=== PATIENT | male | born 1970 | race African-American/Black ===

== ENCOUNTER 2018-11-08 07:26 | Observation (INO) | payer OTHER ==
[~2018-11-08] VITALS: Ht 175.3 cm; Wt 114.4 kg
[~2018-11-08 07:26] MED LIST: FAMO20TA5 PO
--- NOTE | 2018-11-08 07:42 | PHYS DOC ---
Past Medical History Past Medical History: GERD, Stroke Past Surgical History: No Surgical History Alcohol Use: Occasionally Drug Use: Marijuana Adult General Chief Complaint Chief Complaint: HYPERTENSION HPI HPI Patient is a 48 year old who presents to ER today for evaluation of headache, high blood pressure, left arm pain associated with some tingling sensation on his left hand off and on since Sunday, which is 5 days ago. He had no history hypertension, no history diabetic. Patient had no history of coronary disease. Patient has history of prostate problem, he is on Flomax for. Patient is a smoker, social drinker. Review of Systems Review of Systems Constitutional: Denies fever or chills [] Eyes: Denies change in visual acuity, redness, or eye pain [] HENT: Denies nasal congestion or sore throat [] Respiratory: Denies cough or shortness of breath [] Cardiovascular: Positive for chest pain, left arm pain, GI: Denies abdominal pain, nausea, vomiting, bloody stools or diarrhea [] : Denies dysuria or hematuria [] Musculoskeletal: Denies back pain or joint pain [] Integument: Denies rash or skin lesions [] Neurologic: Positive for headache and dizziness, NO focal weakness or sensory changes [] Endocrine: Denies polyuria or polydipsia [] All other systems were reviewed and found to be within normal limits, except as documented in this note. Current Medications Current Medications Current Medications Medications (Trade) Dose Ordered Sig/[facility] Start Time Stop Time Status Last Admin Dose Admin Acetaminophen (Tylenol) 1,000 mg 1X ONCE 11/08/18 08:00 11/08/18 08:04 DC 11/08/18 08:14 1,000 MG Famotidine (Pepcid Vial) 20 mg 1X ONCE 11/08/18 08:45 11/08/18 08:46 DC 11/08/18 08:51 20 MG Multi-Ingredient Mouthwash/Gargle (Gi Cocktail) 20 ml 1X ONCE 11/08/18 08:45 11/08/18 08:46 DC 11/08/18 08:51 20 ML Nitroglycerin (Nitrostat) 0.4 mg PRN Q5MIN PRN 11/08/18 10:00 11/08/18 10:12 0.4 MG Allergies Allergies Allergies Coded Allergies Type Severity Reaction Last Updated Verified No Known Drug Allergies 11/08/18 No Physical Exam Physical Exam Constitutional: Well developed, well nourished, no acute distress, non-toxic appearance. [] HENT: Normocephalic, atraumatic, bilateral external ears normal, oropharynx moist, no oral exudates, nose normal. [] Eyes: PERRLA, EOMI, conjunctiva normal, no discharge. [] Neck: Normal range of motion, no tenderness, supple, no stridor. [] Cardiovascular:Heart rate regular rhythm, no murmur [] Lungs & Thorax: Bilateral breath sounds clear to auscultation [] Abdomen: Bowel sounds normal, soft, no tenderness, no masses, no pulsatile masses. [] Skin: Warm, dry, no erythema, no rash. [] Back: No tenderness, no CVA tenderness. [] Extremities: No tenderness, no cyanosis, no clubbing, ROM intact, no edema. [] Neurologic: Alert and oriented X 3, normal motor function, normal sensory function, no focal deficits noted. [] Psychologic: Affect normal, judgement normal, mood normal. [] Current Patient Data Vital Signs Vital Signs Date Time Temp Pulse Resp B/P (MAP) Pulse Ox O2 Delivery O2 Flow Rate FiO2 11/08/18 10:12 84 140/85 11/08/18 07:29 98.2 18 99 Room Air 98.2 Lab Values Laboratory Tests Test 11/08/18 07:40 White Blood Count 8.4 x10^3/uL (4.0-11.0) Red Blood Count 4.85 x10^6/uL (4.30-5.70) Hemoglobin 15.1 g/dL (13.0-17.5) Hematocrit 42.8 % (39.0-53.0) Mean Corpuscular Volume 88 fL (79-100) Mean Corpuscular Hemoglobin 31 pg (25-35) Mean Corpuscular Hemoglobin Concent 35 g/dL (31-37) Red Cell Distribution Width 14.2 % (11.5-14.5) Platelet Count 215 x10^3/uL (140-400) Neutrophils (%) (Auto) 40 % (31-73) Lymphocytes (%) (Auto) 51 % (24-48) H Monocytes (%) (Auto) 7 % (0-9) Eosinophils (%) (Auto) 2 % (0-3) Basophils (%) (Auto) 1 % (0-3) Neutrophils # (Auto) 3.3 x10^3uL (1.8-7.7) Lymphocytes # (Auto) 4.3 x10^3/uL (1.0-4.8) Monocytes # (Auto) 0.6 x10^3/uL (0.0-1.1) Eosinophils # (Auto) 0.2 x10^3/uL (0.0-0.7) Basophils # (Auto) 0.1 x10^3/uL (0.0-0.2) Prothrombin Time 12.3 SEC (11.7-14.0) Prothrombin Time INR 0.9 (0.8-1.1) Sodium Level 142 mmol/L (136-145) Potassium Level 3.6 mmol/L (3.5-5.1) Chloride Level 106 mmol/L (98-107) Carbon Dioxide Level 28 mmol/L (21-32) Anion Gap 8 (6-14) Blood Urea Nitrogen 12 mg/dL (8-26) Creatinine 1.2 mg/dL (0.7-1.3) Estimated GFR (Cockcroft-Gault) 77.9 BUN/Creatinine Ratio 10 (6-20) Glucose Level 113 mg/dL (70-99) H Calcium Level 9.1 mg/dL (8.5-10.1) Magnesium Level 2.1 mg/dL (1.8-2.4) Total Bilirubin 0.5 mg/dL (0.2-1.0) Aspartate Amino Transferase (AST) 16 U/L (15-37) Alanine Aminotransferase (ALT) 17 U/L (16-63) Alkaline Phosphatase 96 U/L (46-116) Creatine Kinase 116 U/L (39-308) Creatine Kinase MB (Mass) < 0.5 ng/mL (0.0-3.6) Creatine Kinase MB Relative Index % (0-4) Troponin I Quantitative < 0.017 ng/mL (0.000-0.055) KQ-Dcc-T-Type Natriuretic Peptide 9 pg/mL (0-124) Total Protein 7.6 g/dL (6.4-8.2) Albumin 3.4 g/dL (3.4-5.0) Albumin/Globulin Ratio 0.8 (1.0-1.7) L Lipase 266 U/L (73-393) Laboratory Tests 11/08/18 07:40 Laboratory Tests 11/08/18 07:40 EKG EKG EKG was read by this physician at 7:35 am, rate of 89 BPM, SINUS RHYTHM, INCOMPLETE RBBB. Interpretation Time: [address] [id number] IMAGING REPORT Signed PATIENT: OLGA CISNEROS ACCOUNT: [id number] : 1970 LOCATION: ER AGE: 48 SEX: M EXAM STATUS: PRE ER ORD. PHYSICIAN: TAMIKO CRUZ DO REASON: chest pain PROCEDURE: PORTABLE CHEST 1V PORTABLE CHEST 1V History: HYPERTENSION, CHEST PAIN, LEFT SIDED NUMBNESS Comparison: July 31, 2016 Findings: AP view of the chest is submitted. There is no new infiltrate, pleural fluid, pneumothorax. Heart size is stable, within normal limits. Impression: 1. No acute radiographic abnormality is identified. Electronically signed by: Tiffany Pinto MD (11/08/2018 7:57 AM) [id number] DICTATED and SIGNED BY: TIFFANY PINTO MD DATE: 11/08/[address] [address] IMAGING REPORT Signed PATIENT: OLGA CSINEROS ACCOUNT: [id number] : 1970 LOCATION: ER AGE: 48 SEX: M EXAM STATUS: REG ER ORD. PHYSICIAN: TAMIKO CRUZ DO REASON: headache, dizziness, HYPERTENSION PROCEDURE: CT HEAD WO CONTRAST CT HEAD WO CONTRAST History: Headache, left arm weakness for one week, hypertension Comparison: July 28, 2014 Technique: Noncontrast CT imaging was performed of the head. Exposure: One or more of the following individualized dose reduction techniques were utilized for this examination: 1. Automated exposure control 2. Adjustment of the mA and/or kV according to patient size 3. Use of iterative reconstruction technique. Findings: No acute extra-axial or parenchymal hemorrhage is identified. There is no significant intra-axial mass effect, midline shift, or extra-axial fluid collection. The logan-white differentiation of the major vascular territories is preserved. The ventricles, sulci, and cisterns are within normal limits in size and configuration. The mastoid air cells and the visualized paranasal sinuses are aerated. No acute calvarial abnormality is identified. Impression: 1. No acute intracranial abnormality is identified. Electronically signed by: Tiffany Pinto MD (11/08/2018 8:38 AM) [id number] DICTATED and SIGNED BY: TIFFANY PINTO MD DATE: 11/08/18 0836 Radiology/Procedures Radiology/Procedures [] Course & Med Decision Making Course & Med Decision Making Pertinent Labs and Imaging studies reviewed. (See chart for details) Dragon Disclaimer Dragon Disclaimer This electronic medical record was generated, in whole or in part, using a voice recognition dictation system. Departure Departure Impression: Primary Impression: Chest pain Additional Impression: HTN (hypertension) Disposition: 09 ADMITTED INPATIENT Admitting Physician: Trell Auguste Condition: STABLE Referrals: PACO FLORENCE DO (PCP) Problem Qualifiers TAMIKO CRUZ DO Nov 08, 2018 07:42
[2018-11-08 07:53] LABS: BASO # 0.1 x10^3/uL (0.0-0.2); BASO % 1 % (0-3); EOS # 0.2 x10^3/uL (0.0-0.7); EOS % 2 % (0-3); HEMATOCRIT 42.8 % (39.0-53.0); HEMOGLOBIN 15.1 g/dL (13.0-17.5); LYMPH # 4.3 x10^3/uL (1.0-4.8); LYMPH % 51 % (24-48); MEAN CORPUSCULAR HEMOGLOBIN 31 pg (25-35); MEAN CORPUSCULAR HGB CONC 35 g/dL (31-37); MEAN CORPUSCULAR VOLUME 88 fL (79-100); MONO # 0.6 x10^3/uL (0.0-1.1); MONO % 7 % (0-9); NEUT # 3.3 x10^3uL (1.8-7.7); NEUT % 40 % (31-73); PLATELET COUNT 215 x10^3/uL (140-400); RED BLOOD COUNT 4.85 x10^6/uL (4.30-5.70); RED CELL DISTRIBUTION WIDTH 14.2 % (11.5-14.5); WHITE BLOOD COUNT 8.4 x10^3/uL (4.0-11.0)
[2018-11-08 07:58] LABS: PROTHROMBIN TIME PATIENT 12.3 SEC (11.7-14.0)
[2018-11-08] MEDS ORDERED: ACETAMINOPHEN 500 MG TABLET PO ONE (08:00)
--- NOTE | 2018-11-08 08:01 | RAD ---
PORTABLE CHEST 1V History: HYPERTENSION, CHEST PAIN, LEFT SIDED NUMBNESS Comparison: July 31, 2016 Findings: AP view of the chest is submitted. There is no new infiltrate, pleural fluid, pneumothorax. Heart size is stable, within normal limits. Impression: 1. No acute radiographic abnormality is identified. Electronically signed by: Graham Gregory MD (11/08/2018 7:57 AM) [id number]
[2018-11-08 08:04] LABS: CALCIUM 9.1 mg/dL (8.5-10.1); CREATININE 1.2 mg/dL (0.7-1.3); GFR 77.9; POTASSIUM 3.6 mmol/L (3.5-5.1)
[2018-11-08 08:10] LABS: ALBUMIN 3.4 g/dL (3.4-5.0); ALBUMIN/GLOBULIN RATIO 0.8 (1.0-1.7); MAGNESIUM 2.1 mg/dL (1.8-2.4); TOTAL BILIRUBIN 0.5 mg/dL (0.2-1.0); TOTAL PROTEIN 7.6 g/dL (6.4-8.2)
[2018-11-08 08:35] LABS: CREATINE KINASE 116 U/L (39-308)
--- NOTE | 2018-11-08 08:42 | RAD ---
CT HEAD WO CONTRAST History: Headache, left arm weakness for one week, hypertension Comparison: July 28, 2014 Technique: Noncontrast CT imaging was performed of the head. Exposure: One or more of the following individualized dose reduction techniques were utilized for this examination: 1. Automated exposure control 2. Adjustment of the mA and/or kV according to patient size 3. Use of iterative reconstruction technique. Findings: No acute extra-axial or parenchymal hemorrhage is identified. There is no significant intra-axial mass effect, midline shift, or extra-axial fluid collection. The logan-white differentiation of the major vascular territories is preserved. The ventricles, sulci, and cisterns are within normal limits in size and configuration. The mastoid air cells and the visualized paranasal sinuses are aerated. No acute calvarial abnormality is identified. Impression: 1. No acute intracranial abnormality is identified. Electronically signed by: Graham Gregory MD (11/08/2018 8:38 AM) [id number]
[2018-11-08] MEDS ORDERED: FAMOTIDINE 20 MG/2 ML VIAL IVP ONE (08:45)
[2018-11-08] MEDS ORDERED: LIDO:MAALOX 1:1 20 ML SINGLE DOSE. SWSW ONE (08:45)
[2018-11-08] MEDS: NITROGLYCERIN SUBLINGUAL 0.4 MG BOTTLE OF 25. SL PRN ×3 (09:57→10:12)
[2018-11-08] MEDS ORDERED: MORPHINE SULFATE 4 MG/ML VIAL. ONE (10:16)
[2018-11-08] MEDS ORDERED: MORPHINE SULFATE 4 MG/ML VIAL. IV ONE (10:30)
[2018-11-08 11:24] VITALS: BP 128/78
[2018-11-08] MEDS ORDERED: LABETALOL 20 MG/4 ML DISP.SYRIN. IVP PRN (12:15)
--- NOTE | 2018-11-08 12:17 | PDOC2 ---
JAYDA HERRERA EXTRUDER OPERATOR MULTIPLE 11/08/18 1217: CARDIAC CONSULT DATE OF CONSULT Date of Consult DATE: 11/08/18 TIME: 11:33 REASON FOR CONSULT Reason for Consult: Chest pain REFERRING PHYSICIAN Referring Physician: Yosef SOURCE Source: Chart review, Patient HISTORY OF PRESENT ILLNESS HISTORY OF PRESENT ILLNESS This is a pleasant 48 yo male admitted for complains of chest pain and POLLARD. Reports that in the last 3 days he has been having left unilateral POLLARD throbbing and also hurts when touched. He has had blurred vision as well yesterday but no unilateral weakness or facial droop which he had several years back and was told of TIA and [place] palsy. No auditory disturbances, nausea, vomiting. No SOA but in the last 3 days he has been having left chest sharp pain as well as epigastric discomfort which appears to be superficial as this is reproducible easily with palpation and positional changes. No prior hx of CAD, arrhythmias, VTE. Positie for intermittent left arm numbness. Reports no recent falls or injury. He does not take any ASA or BP meds but in the last 3 days his spouse has been checking his BP and has been noting close to 250/116. His diet consist of mostly processed food. PAST MEDICAL HISTORY Pulmonary: No pertinent hx CENTRAL NERVOUS SYSTEM: TIA, Other (bells palsy) GI: GERD Musculoskeletal: Osteoarthritis Renal/: Benign prostatic enlarg. PAST SURGICAL HISTORY Past Surgical History: No pertinent history FAMILY HISTORY Family History noncontributory SOCIAL HISTORY Smoke: <1 pack per day ALCOHOL: occassional Drugs: Marijuana Lives: with Family CURRENT MEDICATIONS CURRENT MEDICATIONS Current Medications Medications (Trade) Dose Ordered Sig/Anitha Route PRN Reason Start Time Stop Time Status Last Admin Dose Admin Acetaminophen (Tylenol) 1,000 mg 1X ONCE PO 11/08/18 08:00 11/08/18 08:04 DC 11/08/18 08:14 Famotidine (Pepcid Vial) 20 mg 1X ONCE IVP 11/08/18 08:45 11/08/18 08:46 DC 11/08/18 08:51 Multi-Ingredient Mouthwash/Gargle (Gi Cocktail) 20 ml 1X ONCE SWSW 11/08/18 08:45 11/08/18 08:46 DC 11/08/18 08:51 Nitroglycerin (Nitrostat) 0.4 mg PRN Q5MIN PRN SL CHEST PAIN 11/08/18 10:00 11/08/18 10:12 Morphine Sulfate (Morphine Sulfate) 4 mg 1X ONCE IV 11/08/18 10:30 11/08/18 10:31 DC 11/08/18 10:23 ALLERGIES ALLERGIES: Coded Allergies: No Known Drug Allergies (Unverified , 11/08/18) ROS Review of System 14 point ROS evaluated with pertinent positives noted per HPI PHYSICAL EXAM General: Alert, Oriented X3, Cooperative, No acute distress HEENT: Atraumatic, Mucous membr. moist/pink Lungs: Clear to auscultation, Normal air movement Heart: Regular rate, Other (2/6 systolic murmur to LLS border) Abdomen: Soft, No tenderness Extremities: No cyanosis, No edema Skin: No breakdown, No significant lesion Neuro: Normal speech, Sensation intact Psych/Mental Status: Mental status NL, Mood NL MUSCULOSKELETAL: Osteoarthritic changes both hands VITALS VITALS Vital Signs Date Time Temp Pulse Resp B/P (MAP) Pulse Ox O2 Delivery O2 Flow Rate FiO2 11/08/18 11:24 97.9 71 128/78 (95) 99 Room Air 97.9 11/08/18 10:49 16 LABS Lab: Laboratory Tests Test 11/08/18 07:40 White Blood Count 8.4 x10^3/uL (4.0-11.0) Red Blood Count 4.85 x10^6/uL (4.30-5.70) Hemoglobin 15.1 g/dL (13.0-17.5) Hematocrit 42.8 % (39.0-53.0) Mean Corpuscular Volume 88 fL (79-100) Mean Corpuscular Hemoglobin 31 pg (25-35) Mean Corpuscular Hemoglobin Concent 35 g/dL (31-37) Red Cell Distribution Width 14.2 % (11.5-14.5) Platelet Count 215 x10^3/uL (140-400) Neutrophils (%) (Auto) 40 % (31-73) Lymphocytes (%) (Auto) 51 % (24-48) Monocytes (%) (Auto) 7 % (0-9) Eosinophils (%) (Auto) 2 % (0-3) Basophils (%) (Auto) 1 % (0-3) Neutrophils # (Auto) 3.3 x10^3uL (1.8-7.7) Lymphocytes # (Auto) 4.3 x10^3/uL (1.0-4.8) Monocytes # (Auto) 0.6 x10^3/uL (0.0-1.1) Eosinophils # (Auto) 0.2 x10^3/uL (0.0-0.7) Basophils # (Auto) 0.1 x10^3/uL (0.0-0.2) Prothrombin Time 12.3 SEC (11.7-14.0) Prothromb Time International Ratio 0.9 (0.8-1.1) Sodium Level 142 mmol/L (136-145) Potassium Level 3.6 mmol/L (3.5-5.1) Chloride Level 106 mmol/L (98-107) Carbon Dioxide Level 28 mmol/L (21-32) Anion Gap 8 (6-14) Blood Urea Nitrogen 12 mg/dL (8-26) Creatinine 1.2 mg/dL (0.7-1.3) Estimated GFR (Cockcroft-Gault) 77.9 BUN/Creatinine Ratio 10 (6-20) Glucose Level 113 mg/dL (70-99) Calcium Level 9.1 mg/dL (8.5-10.1) Magnesium Level 2.1 mg/dL (1.8-2.4) Total Bilirubin 0.5 mg/dL (0.2-1.0) Aspartate Amino Transf (AST/SGOT) 16 U/L (15-37) Alanine Aminotransferase (ALT/SGPT) 17 U/L (16-63) Alkaline Phosphatase 96 U/L (46-116) Creatine Kinase 116 U/L (39-308) Creatine Kinase MB (Mass) < 0.5 ng/mL (0.0-3.6) Creatine Kinase MB Relative Index % (0-4) Troponin I Quantitative < 0.017 ng/mL (0.000-0.055) RG-Fce-G-Type Natriuretic Peptide 9 pg/mL (0-124) Total Protein 7.6 g/dL (6.4-8.2) Albumin 3.4 g/dL (3.4-5.0) Albumin/Globulin Ratio 0.8 (1.0-1.7) Lipase 266 U/L (73-393) ASSESSMENT/PLAN ASSESSMENT/PLAN 1. Atypical Chest pain: doubt ACS. initial trop nml, EKG SR without acute changes by comparison. Suspect MSK and uncontrolled HTN 2. Malignant HTN: much improved noted 250/116 range in the last 3 days at home per spouse 3. Left unilateral POLLARD with hypertensive encephalopathy: blurred vision. CT head unremarkable 4. Likely muscle strain: epigastric region site. defer to PCP 5. HLP 6. Tobaccoism 7. Marijuana use 8. Hx of TIA and bells palsy Recommendations 1. Will obtain accurate med list. Discussed with RN 2. TTE. Trend troponin 3. BP is normalized after NTG and morphine given. Labetolol IV PRN. Await TTE and pending BP trend will place on appropriate antihypertensives. 4. Consider neurology consult. 5. Smoking cessation. lipids and drug screen. 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 MOHINI LUKE MD 11/08/18 1440: CARDIAC CONSULT ASSESSMENT/PLAN ASSESSMENT/PLAN Patient seen and examined. Agree with [facility] [employer]'s assessment and plan. Chest pain with atypical features and most probably musculoskeletal. Myocardial infarction has been ruled out. Blood pressure better controlled since admission. Check 2-D echo to assess LV systolic function and rule out wall motion abnormalities Ischemic workup could be considered as an outpatient Thank you for your consultation JAYDA HERRERA APRN Nov 08, 2018 12:17 MOHINI LUKE MD Nov 08, 2018 14:40
--- NOTE | 2018-11-08 12:47 | EKG ---
[facility] [address] [place] [address] Test Date: 2018-11-08 Test Time: 10:35:48 Pat Name: OLGA CISNEROS Department: Room: Gender: M Case Management Director: : 1970 Requested By: TAMIKO CRUZ Order Number: [id number] Reading MD: Measurements Intervals [place] Rate: 72 P: 44 TX: 154 QRS: -15 QRSD: 94 T: 48 QT: 370 QTc: 407 Interpretive Statements SINUS RHYTHM LEFT ATRIAL ABNORMALITY LEFTWARD AXIS ABNORMAL ECG RI6.01 No previous ECG available for comparison
[2018-11-08 12:55] LABS: CHOLESTEROL/HDL RATIO 5.3
--- NOTE | 2018-11-08 13:03 | PDOC2 ---
MARCI NICHOLS Marta CUT OFF SAWYER LOG 11/08/18 1303: UROLOGY CONSULT Date of Consult Date of Consult DATE: 11/08/18 TIME: 12:56 Reason for Consult Reason for Consult: Patient complains of prostate problems. Identification/Chief Complaint Chief Complaint Patient complains of prostate problems. Source Source: Caregiver, Chart review, Patient History of Present Illness Reason for Visit: Patient is a 48 year old male admitted for chest pain and hypertension evaluation. He had complained of frequency and nocturia to admitting physicians and so urology was consulted. Patient denies a history of prostate cancer, but may have BPH. He was just put on Flomax about one month ago and this has been working very well for him. He would like this medication ordered for him while he is in house. He denies a history of kidney stones or kidney problems. He has been urinating well/emptying his bladder well since he arrived here. However, he does admit some constipation and would like someone to look at his hemorrhoids. Past Medical History Pulmonary: No pertinent hx CENTRAL NERVOUS SYSTEM: TIA, Other (bells palsy) GI: GERD Musculoskeletal: Osteoarthritis Renal/: Benign prostatic enlarg. Past Surgical History Past Surgical History: No pertinent history Social History <1 pack per day ALCOHOL: occassional Drugs: Marijuana Lives: with Family Current Problem List Problems: (1) BPH (benign prostatic hyperplasia) Current Medications Current Medications Current Medications Acetaminophen (Tylenol) 1,000 mg 1X ONCE PO Last administered on 11/08/18at 08: 14; Start 11/08/18 at 08:00; Stop 11/08/18 at 08:04; Status DC Famotidine (Pepcid Vial) 20 mg 1X ONCE IVP Last administered on 11/08/18at 08:51 ; Start 11/08/18 at 08:45; Stop 11/08/18 at 08:46; Status DC Labetalol HCl (Normodyne Iv Push) 20 mg PRN Q2HR PRN IVP HYPERTENSION, SEE COMMENTS; Start 11/08/18 at 12:15 Morphine Sulfate (Morphine Sulfate) 4 mg 1X ONCE IV Last administered on at 10:23; Start 11/08/18 at 10:30; Stop 11/08/18 at 10:31; Status DC Morphine Sulfate (Morphine Sulfate) 4 mg STK-MED ONCE .ROUTE ; Start 11/08/18 at 10:16; Stop 11/08/18 at 10:17; Status DC Multi-Ingredient Mouthwash/Gargle (Gi Cocktail) 20 ml 1X ONCE SWSW Last administered on 11/08/18at 08:51; Start 11/08/18 at 08:45; Stop 11/08/18 at 08:46; Status DC Nitroglycerin (Nitrostat) 0.4 mg PRN Q5MIN PRN SL CHEST PAIN Last administered on 11/08/18at 10:12; Start 11/08/18 at 10:00 Allergies Allergies: Coded Allergies: No Known Drug Allergies (Unverified , 11/08/18) ROS Review Of Systems: CONSTITUTIONAL: No fever or chills EYES: No recent changes SKIN: No rash or itching CARDIOVASCULAR: No chest pain, syncope, palpitations, or edema RESPIRATORY: No SOB or cough GASTROINTESTINAL: No nausea, vomiting or abdominal pain NEUROLOGICAL: No headaches or weakness ENDOCRINE: No cold or heat intolerance GENITOURINARY: + Frequency, nocturia, BPH/LUTS symptoms. MUSCULOSKELETAL: No back pain or joint pain LYMPHATICS: No enlarged lymph nodes PSYCHIATRIC: No anxiety or depression Physical Exam Physical Exam: General: Pleasant, no acute distress, well groomed Eyes: conjunctiva anicteric, eyes full range of motion ENT: moist oral mucosa, normal dentition Neck: Trachea midline, no masses Respiratory: unlabored breathing, not using accessory muscles, Abdomen: nontender, nondistended, no hepatosplenomegaly, no masses. No flank pain bilaterally. Vitals VITALS Vital Signs Date Time Temp Pulse Resp B/P (MAP) Pulse Ox O2 Delivery O2 Flow Rate FiO2 11/08/18 11:24 97.9 71 128/78 (95) 99 Room Air 97.9 11/08/18 10:49 16 Labs Labs Laboratory Tests Test 11/08/18 07:40 11/08/18 12:00 White Blood Count 8.4 x10^3/uL (4.0-11.0) Red Blood Count 4.85 x10^6/uL (4.30-5.70) Hemoglobin 15.1 g/dL (13.0-17.5) Hematocrit 42.8 % (39.0-53.0) Mean Corpuscular Volume 88 fL (79-100) Mean Corpuscular Hemoglobin 31 pg (25-35) Mean Corpuscular Hemoglobin Concent 35 g/dL (31-37) Red Cell Distribution Width 14.2 % (11.5-14.5) Platelet Count 215 x10^3/uL (140-400) Neutrophils (%) (Auto) 40 % (31-73) Lymphocytes (%) (Auto) 51 % (24-48) Monocytes (%) (Auto) 7 % (0-9) Eosinophils (%) (Auto) 2 % (0-3) Basophils (%) (Auto) 1 % (0-3) Neutrophils # (Auto) 3.3 x10^3uL (1.8-7.7) Lymphocytes # (Auto) 4.3 x10^3/uL (1.0-4.8) Monocytes # (Auto) 0.6 x10^3/uL (0.0-1.1) Eosinophils # (Auto) 0.2 x10^3/uL (0.0-0.7) Basophils # (Auto) 0.1 x10^3/uL (0.0-0.2) Prothrombin Time 12.3 SEC (11.7-14.0) Prothromb Time International Ratio 0.9 (0.8-1.1) Sodium Level 142 mmol/L (136-145) Potassium Level 3.6 mmol/L (3.5-5.1) Chloride Level 106 mmol/L (98-107) Carbon Dioxide Level 28 mmol/L (21-32) Anion Gap 8 (6-14) Blood Urea Nitrogen 12 mg/dL (8-26) Creatinine 1.2 mg/dL (0.7-1.3) Estimated GFR (Cockcroft-Gault) 77.9 BUN/Creatinine Ratio 10 (6-20) Glucose Level 113 mg/dL (70-99) Calcium Level 9.1 mg/dL (8.5-10.1) Magnesium Level 2.1 mg/dL (1.8-2.4) Total Bilirubin 0.5 mg/dL (0.2-1.0) Aspartate Amino Transf (AST/SGOT) 16 U/L (15-37) Alanine Aminotransferase (ALT/SGPT) 17 U/L (16-63) Alkaline Phosphatase 96 U/L (46-116) Creatine Kinase 116 U/L (39-308) Creatine Kinase MB (Mass) < 0.5 ng/mL (0.0-3.6) Creatine Kinase MB Relative Index % (0-4) Troponin I Quantitative < 0.017 ng/mL (0.000-0.055) < 0.017 ng/mL (0.000-0.055) FX-Hen-U-Type Natriuretic Peptide 9 pg/mL (0-124) Total Protein 7.6 g/dL (6.4-8.2) Albumin 3.4 g/dL (3.4-5.0) Albumin/Globulin Ratio 0.8 (1.0-1.7) Triglycerides Level 115 mg/dL (0-150) Cholesterol Level 212 mg/dL (0-200) LDL Cholesterol, Calculated 149 mg/dL (0-100) VLDL Cholesterol, Calculated 23 mg/dL (0-40) Non-HDL Cholesterol Calculated 172 mg/dL (0-129) HDL Cholesterol 40 mg/dL (40-60) Cholesterol/HDL Ratio 5.3 Lipase 266 U/L (73-393) Laboratory Tests Test 11/08/18 07:40 11/08/18 12:00 White Blood Count 8.4 x10^3/uL (4.0-11.0) Red Blood Count 4.85 x10^6/uL (4.30-5.70) Hemoglobin 15.1 g/dL (13.0-17.5) Hematocrit 42.8 % (39.0-53.0) Mean Corpuscular Volume 88 fL (79-100) Mean Corpuscular Hemoglobin 31 pg (25-35) Mean Corpuscular Hemoglobin Concent 35 g/dL (31-37) Red Cell Distribution Width 14.2 % (11.5-14.5) Platelet Count 215 x10^3/uL (140-400) Neutrophils (%) (Auto) 40 % (31-73) Lymphocytes (%) (Auto) 51 % (24-48) Monocytes (%) (Auto) 7 % (0-9) Eosinophils (%) (Auto) 2 % (0-3) Basophils (%) (Auto) 1 % (0-3) Neutrophils # (Auto) 3.3 x10^3uL (1.8-7.7) Lymphocytes # (Auto) 4.3 x10^3/uL (1.0-4.8) Monocytes # (Auto) 0.6 x10^3/uL (0.0-1.1) Eosinophils # (Auto) 0.2 x10^3/uL (0.0-0.7) Basophils # (Auto) 0.1 x10^3/uL (0.0-0.2) Prothrombin Time 12.3 SEC (11.7-14.0) Prothromb Time International Ratio 0.9 (0.8-1.1) Sodium Level 142 mmol/L (136-145) Potassium Level 3.6 mmol/L (3.5-5.1) Chloride Level 106 mmol/L (98-107) Carbon Dioxide Level 28 mmol/L (21-32) Anion Gap 8 (6-14) Blood Urea Nitrogen 12 mg/dL (8-26) Creatinine 1.2 mg/dL (0.7-1.3) Estimated GFR (Cockcroft-Gault) 77.9 BUN/Creatinine Ratio 10 (6-20) Glucose Level 113 mg/dL (70-99) Calcium Level 9.1 mg/dL (8.5-10.1) Magnesium Level 2.1 mg/dL (1.8-2.4) Total Bilirubin 0.5 mg/dL (0.2-1.0) Aspartate Amino Transf (AST/SGOT) 16 U/L (15-37) Alanine Aminotransferase (ALT/SGPT) 17 U/L (16-63) Alkaline Phosphatase 96 U/L (46-116) Creatine Kinase 116 U/L (39-308) Creatine Kinase MB (Mass) < 0.5 ng/mL (0.0-3.6) Creatine Kinase MB Relative Index % (0-4) Troponin I Quantitative < 0.017 ng/mL (0.000-0.055) < 0.017 ng/mL (0.000-0.055) UG-Iup-N-Type Natriuretic Peptide 9 pg/mL (0-124) Total Protein 7.6 g/dL (6.4-8.2) Albumin 3.4 g/dL (3.4-5.0) Albumin/Globulin Ratio 0.8 (1.0-1.7) Triglycerides Level 115 mg/dL (0-150) Cholesterol Level 212 mg/dL (0-200) LDL Cholesterol, Calculated 149 mg/dL (0-100) VLDL Cholesterol, Calculated 23 mg/dL (0-40) Non-HDL Cholesterol Calculated 172 mg/dL (0-129) HDL Cholesterol 40 mg/dL (40-60) Cholesterol/HDL Ratio 5.3 Lipase 266 U/L (73-393) Assessment/Plan Assessment/Plan BPH-Will order Flomax for patient Nursing staff may bladder scan patient prn suspected retention. LORIN deferred today per patient request. GI consult for complaints of constipation/hemorrhoids Dr. Alejandre to round on patient over the weekend. PABLO ALEJANDRE MD 11/08/186: UROLOGY CONSULT Assessment/Plan Assessment/Plan Patient seen / examined. Agree with restarting flomax. F/U in urology clinic in 4 weeks. MARCI NICHOLS APRN Nov 08, 2018 13:03 PABLO ALEJANDRE MD Nov 08, 2018 20:46
--- NOTE | 2018-11-08 14:03 | EKG ---
[facility] [address] [place] [address] Test Date: 2018-11-08 Test Time: 13:12:51 Pat Name: OLGA CISNEROS Department: Patient ID: [id number] Room: Gender: M Analytical Technician: EFRAÍN : 1970 Requested By: TAMIKO CRUZ Order Number: [id number] Reading MD: Measurements Intervals [place] Rate: 71 P: 52 DC: 164 QRS: -2 QRSD: 98 T: 51 QT: 378 QTc: 415 Interpretive Statements SINUS RHYTHM LEFT ATRIAL ABNORMALITY LEFTWARD AXIS INCOMPLETE RIGHT BUNDLE BRANCH BLOCK QRS(T) CONTOUR ABNORMALITY CONSIDER ANTEROLATERAL MYOCARDIAL DAMAGE ABNORMAL ECG RI6.01 Unconfirmed report No previous ECG available for comparison
[2018-11-08] MEDS: TAMSULOSIN 0.4 MG CAP.ER.24H. PO SCH (14:24)
--- NOTE | 2018-11-08 14:25 | PDOC2 ---
GI CONSULT Reason For Consult: Constipation and hemorrhoids HPI: HPI: 48 y/o male admitted through ER w/ atypical chest pain, malignant HTN, and left- sided headache. He reports chronic (years) of "sternal pressure" that can be worse after eating, after stooling, or when he sits up. No radiation higher into chest or to back but sometimes felt a bit lower in abdomen. GI cocktail did not help. H/o GERD though not bothersome for 1-2 years. Occasionally takes a Tums or baking soda for "gas" after eating certain foods. Does not recall past use of H2 elias or PPI (though was given famotidine Rx in the ER in 07/2016 for epigastric pain/possible gastritis). No dysphagia. Often has early satiety. Denies bloating. No n/v. Lost 11 pounds recently due to avoiding eating; history a bit confusing, might have avoided eating due to sternal pressure or might have avoided eating because food (names soup, salad, and [employer] sandwiches) "went right through." Denies h/o diarrhea, but seems had some sort of change in bowel habits around . Typical pattern now is 1 solid stool daily w/ occasional straining. Feels a "tearing" in rectum when stooling and notes red blood w/ wiping. Stool softeners helped ( but no longer taking). Denies NSAIDs. Has used Tylenol #3 and hydrocodone but neither help his sternal pain much. Reports EGD and colonoscopy sometime in late 2018 - thinks performed at [facility] (first said [facility] in [place], then thought facility was off of [facility]). Was told both were normal except internal hemorrhoids. No GB, liver, or pancreas history. PMH: PMH: TIA, Romano's Palsy, GERD, OA, BPH FH: Family History: No pertinent hx (denies GI cancers) Social History: Smoke: <1 pack per day ALCOHOL: rare (1 drink on New Year's) Drugs: Marijuana (several times weekly) ROS: GEN: Denies fevers, chills, sweats HEENT: Denies blurred vision, sore throat CV: +chest pain RESP: Denies shortness of air, cough GI: Per HPI : Denies hematuria, dysuria ENDO: +weight loss NEURO: +headache +LUE numbness MSK: Denies weakness, joint pain/swelling SKIN: Denies jaundice, pruritus Vitals: Vitals: Vital Signs Date Time Temp Pulse Resp B/P (MAP) Pulse Ox O2 Delivery O2 Flow Rate FiO2 11/08/18 11:24 97.9 71 128/78 (95) 99 Room Air 97.9 11/08/18 10:49 16 Labs: Labs: Laboratory Tests Test 11/08/18 07:40 11/08/18 12:00 White Blood Count 8.4 x10^3/uL (4.0-11.0) Red Blood Count 4.85 x10^6/uL (4.30-5.70) Hemoglobin 15.1 g/dL (13.0-17.5) Hematocrit 42.8 % (39.0-53.0) Mean Corpuscular Volume 88 fL (79-100) Mean Corpuscular Hemoglobin 31 pg (25-35) Mean Corpuscular Hemoglobin Concent 35 g/dL (31-37) Red Cell Distribution Width 14.2 % (11.5-14.5) Platelet Count 215 x10^3/uL (140-400) Neutrophils (%) (Auto) 40 % (31-73) Lymphocytes (%) (Auto) 51 % (24-48) Monocytes (%) (Auto) 7 % (0-9) Eosinophils (%) (Auto) 2 % (0-3) Basophils (%) (Auto) 1 % (0-3) Neutrophils # (Auto) 3.3 x10^3uL (1.8-7.7) Lymphocytes # (Auto) 4.3 x10^3/uL (1.0-4.8) Monocytes # (Auto) 0.6 x10^3/uL (0.0-1.1) Eosinophils # (Auto) 0.2 x10^3/uL (0.0-0.7) Basophils # (Auto) 0.1 x10^3/uL (0.0-0.2) Prothrombin Time 12.3 SEC (11.7-14.0) Prothromb Time International Ratio 0.9 (0.8-1.1) Sodium Level 142 mmol/L (136-145) Potassium Level 3.6 mmol/L (3.5-5.1) Chloride Level 106 mmol/L (98-107) Carbon Dioxide Level 28 mmol/L (21-32) Anion Gap 8 (6-14) Blood Urea Nitrogen 12 mg/dL (8-26) Creatinine 1.2 mg/dL (0.7-1.3) Estimated GFR (Cockcroft-Gault) 77.9 BUN/Creatinine Ratio 10 (6-20) Glucose Level 113 mg/dL (70-99) Calcium Level 9.1 mg/dL (8.5-10.1) Magnesium Level 2.1 mg/dL (1.8-2.4) Total Bilirubin 0.5 mg/dL (0.2-1.0) Aspartate Amino Transf (AST/SGOT) 16 U/L (15-37) Alanine Aminotransferase (ALT/SGPT) 17 U/L (16-63) Alkaline Phosphatase 96 U/L (46-116) Creatine Kinase 116 U/L (39-308) Creatine Kinase MB (Mass) < 0.5 ng/mL (0.0-3.6) Creatine Kinase MB Relative Index % (0-4) Troponin I Quantitative < 0.017 ng/mL (0.000-0.055) < 0.017 ng/mL (0.000-0.055) HC-Kbw-P-Type Natriuretic Peptide 9 pg/mL (0-124) Total Protein 7.6 g/dL (6.4-8.2) Albumin 3.4 g/dL (3.4-5.0) Albumin/Globulin Ratio 0.8 (1.0-1.7) Triglycerides Level 115 mg/dL (0-150) Cholesterol Level 212 mg/dL (0-200) LDL Cholesterol, Calculated 149 mg/dL (0-100) VLDL Cholesterol, Calculated 23 mg/dL (0-40) Non-HDL Cholesterol Calculated 172 mg/dL (0-129) HDL Cholesterol 40 mg/dL (40-60) Cholesterol/HDL Ratio 5.3 Lipase 266 U/L (73-393) Thyroid Stimulating Hormone (TSH) 1.509 uIU/mL (0.358-3.74) Allergies: Coded Allergies: No Known Drug Allergies (Unverified , 11/08/18) Medications: Current Medications Medications (Trade) Dose Ordered Sig/Anitha Route PRN Reason Start Time Stop Time Status Last Admin Dose Admin Acetaminophen (Tylenol) 1,000 mg 1X ONCE PO 11/08/18 08:00 11/08/18 08:04 DC 11/08/18 08:14 Famotidine (Pepcid Vial) 20 mg 1X ONCE IVP 11/08/18 08:45 11/08/18 08:46 DC 11/08/18 08:51 Multi-Ingredient Mouthwash/Gargle (Gi Cocktail) 20 ml 1X ONCE SWSW 11/08/18 08:45 11/08/18 08:46 DC 11/08/18 08:51 Nitroglycerin (Nitrostat) 0.4 mg PRN Q5MIN PRN SL CHEST PAIN 11/08/18 10:00 11/08/18 10:12 Morphine Sulfate (Morphine Sulfate) 4 mg 1X ONCE IV 11/08/18 10:30 11/08/18 10:31 DC 11/08/18 10:23 Imaging: Imaging: Head CT Impression: 1. No acute intracranial abnormality is identified. CXR Impression: 1. No acute radiographic abnormality is identified. PE: GEN: NAD HEENT: Atraumatic, PERRL LUNGS: CTAB HEART: RRR ABD: NABS, soft, epigastric discomfort, also around xiphoid - doesn't really want me to touch his abdomen much EXTREMITY: No edema SKIN: No rashes, no jaundice NEURO/PSYCH: A & O 3 A/P: A/P: Atypical chest pain, HTN, POLLARD Chronic epigastric/sternal pain ("pressure"), early satiety - reports normal EGD in 2018 H/o GERD Change in bowel habits/straining, rectal pain/bleeding - some use of narcs at home, reports normal colonoscopy in 2018 except hemorrhoids -- ?GERD ?hemorrhoids ?fissure - try PPI QD and regular use of laxative. Will ask for records of recent EGD and colonoscopy. ?abd imaging - will return w/ Dr. Huynh. KATE KHALIL Nov 08, 2018 14:25
[2018-11-08 14:50] VITALS: BP 150/88
[2018-11-08] MEDS: POLYETHYLENE GLYCOL 3350 17 GM PACKET. PO SCH ×2 (15:00→18:23)
--- NOTE | 2018-11-08 15:11 | HP ---
ADMIT DATE: 11/08/2018 CHIEF COMPLAINT: Hypertension, chest discomfort, urinary issues, headache, and left arm numbness. HISTORY OF PRESENT ILLNESS: The patient is a pleasant middle-aged male, who does not see the doctor much until just the past few months. He has been for an EGD within the past couple of months because he has been having abdominal pain. They really did not find much. He also complains of urinary symptoms. He thinks his prostate is swollen, but I do not think that has been officially diagnosed today. He presented with headache, elevated blood pressure, left arm tingling and was noted to have hypertensive urgency of 160/105. He rated his symptoms at 10/10. He has associated anxiety, worse with moving, describes it as agonizing. I discussed the case with ER physician. We are going to admit the patient and have multiple consults. PAST MEDICAL HISTORY: GERD and marijuana use. ALLERGIES: None. FAMILY HISTORY: GERD. SOCIAL HISTORY: He does not drink, smoke or take drugs. He has a girlfriend who is present. MEDICATIONS: Reviewed, please refer to the MRAD. REVIEW OF SYSTEMS: GENERAL: No history of weight change, weakness or fevers. SKIN: No bruising, hair changes or rashes. EYES: No blurred, double or loss of vision. NOSE AND THROAT: No history of nosebleeds, hoarseness or sore throat. HEART: He complains of chest pain. LUNGS: Denies cough, hemoptysis, wheezing or shortness of breath. GASTROINTESTINAL: He complains of abdominal pain. GENITOURINARY: He complains of difficulty starting his strain. NEUROLOGIC: Denies history of numbness, tingling, tremor or weakness. PSYCHIATRIC: No history of panic, anxiety or depression. ENDOCRINE: No history of heat or cold intolerance, polyuria or polydipsia. EXTREMITIES: Denies muscle weakness, joint pain, pain on walking or stiffness. PHYSICAL EXAMINATION: VITAL SIGNS: Temperature afebrile, pulse 90, respirations 18, blood pressure 160/105. GENERAL: He is alert, cooperative, anxious. His girlfriend is present. HEART: Normal S1, S2. LUNGS: Clear. ABDOMEN: Soft. EXTREMITIES: No edema. SKIN: No rashes. ENDOCRINE: No thyromegaly. LYMPHATICS: No cervical nodes. HEMATOPOIETIC: No bruising. PSYCHIATRIC: He is anxious. LABORATORY DATA: Hematology is normal. Electrolytes are pending. Troponin is 0. Cholesterol 212. ASSESSMENT AND PLAN: Abdominal pain, chest pain, urinary symptoms, left arm numbness. The patient has been admitted. We will consult Urology, consult Cardiology and consult GI. Continue his home meds. Start Flomax, PT, OT, IV fluids, home meds, serial enzymes, serial EKGs, p.r.n. Zofran. PROGNOSIS: Guarded. CORY MATHEWS DO DR: KLEVER/nash JOB#: [id number] / [id number]
[2018-11-08 15:17] LABS: BILIRUBIN,URINE NEGATIVE (NEG); CLARITY,URINE CLEAR; COLOR,URINE YELLOW; NITRITE,URINE NEGATIVE (NEG); PROTEIN,URINE NEGATIVE (NEG-TRACE)
[2018-11-08 15:46] LABS: BACTERIA,URINE 0 /HPF (0-FEW); RBC,URINE 0 /HPF (0-2); SQUAMOUS EPITHELIAL CELL,UR OCC /LPF; WBC,URINE OCC /HPF (0-4)
--- NOTE | 2018-11-08 17:02 | CARD ---
MR#: [id number] Date of Study: 11/08/2018 Ordering Physician: JAYDA HERRERA, Referring Physician: CORY MATHEWS Tech: Елена Baltazar RDCS APPROVED REPORT EXAM: Two-dimensional and M-mode echocardiogram with Doppler and color Doppler. Other Information Quality : GoodHR: 79bpm Rhythm : NSR INDICATION Chest Pain 2D DIMENSIONS RVDd2.7 (2.9-3.5cm)Left Atrium(2D)3.0 (1.6-4.0cm) IVSd1.2 (0.7-1.1cm)Aortic Root(2D)3.0 (2.0-3.7cm) LVDd4.0 (3.9-5.9cm)LVOT Diameter1.8 (1.8-2.4cm) PWd1.2 (0.7-1.1cm)LVDs2.8 (2.5-4.0cm) FS (%) 30.9 %SV42.4 ml LVEF(%)59.0 (>50%) M-Mode DIMENSIONS Left Atrium(MM)3.00 (2.5-4.0cm)Aortic Root3.38 (2.2-3.7cm) Aortic Valve AoV Peak Renny.143.4cm/sAoV VTI25.8cm AO Peak GR.8.2mmHgLVOT Peak Renny.122.9cm/s AO Mean GR.4mmHgAVA (VMAX)2.28cm2 LAURI (VTI)2.30cm2 Mitral Valve MV E Emqnnjvu43.8cm/sMV DECEL [id number] MV A Rybfvogl57.4cm/sE/A Ratio1.3 MV A [id number] Pulmonary Valve PV Peak Xllrrykk46.6cm/s LEFT VENTRICLE The left ventricle is normal size. There is mild concentric left ventricular hypertrophy. The left ve ntricular systolic function is normal. The Ejection Fraction is 55-60%. There is normal LV segmental wall motion. The left ventricular diastolic function and filling is normal for age. RIGHT VENTRICLE The right ventricle is normal size. There is normal right ventricular wall thickness. The right ventr icular systolic function is normal. ATRIA The left atrium size is normal. The right atrium size is normal. The interatrial septum is intact wit h no evidence for an atrial septal defect or patent foramen ovale as noted on 2-D or Doppler imaging. AORTIC VALVE The aortic valve is normal in structure and function. The aortic valve is trileaflet. Doppler and Col or Flow revealed no significant aortic regurgitation. There is no significant aortic valvular stenosi s. MITRAL VALVE The mitral valve is normal in structure and function. There is no evidence of mitral valve prolapse. There is no mitral valve stenosis. Doppler and Color-flow revealed trace mitral regurgitation. TRICUSPID VALVE The tricuspid valve is normal in structure and function. Doppler and Color Flow revealed no tricuspid valve regurgitation noted. There is no tricuspid valve prolapse or vegetation. There is no tricuspid valve stenosis. PULMONIC VALVE The pulmonary valve is normal in structure and function. Doppler and Color Flow revealed no pulmonic valvular regurgitation. There is no pulmonic valvular stenosis. GREAT VESSELS The aortic root is normal in size. The ascending aorta is normal in size. The IVC is normal in size a nd collapses >50% with inspiration. PERICARDIAL EFFUSION There is no evidence of significant pericardial effusion. Critical Notification Critical Value: No <Conclusion> The left ventricular systolic function is normal. The Ejection Fraction is 55-60%. There is normal LV segmental wall motion. Doppler and Color-flow revealed trace mitral regurgitation. There is no evidence of significant pericardial effusion. Signed by : Juan Morin, Electronically Approved : 11/08/2018 17:01:03
[2018-11-08] MEDS: PANTOPRAZOLE 40 MG TABLET.DR. PO SCH (17:46)
[2018-11-08] MEDS: amLODIPine BESYLATE 10 MG TABLET PO SCH (18:22)
[2018-11-08 18:34] LABS: BARBITURATES NEG (NEG); BENZODIAZEPINES NEG (NEG); CANNABINOIDS POS (NEG); COCAINE NEG (NEG); METHADONE NEG (NEG); OPIATES POS (NEG); PHENCYCLIDINE NEG (NEG)
[2018-11-08 18:43] LABS: AMPHETAMINE/METHAMPHETAMINE NEG (NEG)
[2018-11-08 19:00] VITALS: BP 168/96
[2018-11-08] MEDS ORDERED: CYCLOBENZAPRINE 10 MG TABLET. PO PRN (19:15)
[2018-11-08] MEDS ORDERED: ACETAMINOPHEN/CODEINE 300/30MG TABLET. PO PRN (19:15)
[2018-11-08] MEDS ORDERED: ATORVASTATIN CALCIUM 20 MG TABLET PO SCH (21:00)
[2018-11-08 22:58] VITALS: BP 166/95
[2018-11-09 02:48] VITALS: BP 155/89
[2018-11-09 07:43] VITALS: BP 114/65
[2018-11-09] MEDS: PANTOPRAZOLE 40 MG TABLET.DR. PO SCH (09:11)
[2018-11-09] MEDS: TAMSULOSIN 0.4 MG CAP.ER.24H. PO SCH (09:11)
[2018-11-09] MEDS: POLYETHYLENE GLYCOL 3350 17 GM PACKET. PO SCH (09:22)
[2018-11-09] MEDS: amLODIPine BESYLATE 10 MG TABLET PO SCH (09:22)
[2018-11-09 10:43] VITALS: BP 153/91
[2018-11-09] MEDS ORDERED: AMLO10TA6 PO (10:49)
[2018-11-09] MEDS ORDERED: TAPE75TA3 PO (10:49)
[2018-11-09] MEDS ORDERED: TAMS0.4C97 PO (10:49)
[2018-11-09] MEDS ORDERED: Pantoprazole PO (10:49)
[2018-11-09] MEDS ORDERED: ATOR20TA58 PO (10:49)
[2018-11-09] MEDS ORDERED: OPIU1SUP2 RC (10:50)
--- NOTE | 2018-11-09 10:57 | PDOC3 ---
Discharge Summary Visit Information Date of Admission: Nov 08, 2018 Date of Discharge: Nov 09, 2018 Admitting Diagnosis: Hypertension, Atypical chest pain Final Diagnosis Problems Medical Problems: (1) Chest pain Status: Acute (2) HTN (hypertension) Status: Acute Brief Hospital Course Allergies Allergies Coded Allergies Type Severity Reaction Last Updated Verified No Known Drug Allergies 11/08/18 No Vital Signs Vital Signs Date Time Temp Pulse Resp B/P (MAP) Pulse Ox O2 Delivery O2 Flow Rate FiO2 11/09/18 10:43 98.3 79 153/91 (111) 99 Room Air 98.3 11/09/18 02:48 18 Lab Results Laboratory Tests Test 11/08/18 07:40 11/08/18 12:00 11/08/18 15:00 11/08/18 17:50 White Blood Count 8.4 x10^3/uL (4.0-11.0) Red Blood Count 4.85 x10^6/uL (4.30-5.70) Hemoglobin 15.1 g/dL (13.0-17.5) Hematocrit 42.8 % (39.0-53.0) Mean Corpuscular Volume 88 fL (79-100) Mean Corpuscular Hemoglobin 31 pg (25-35) Mean Corpuscular Hemoglobin Concent 35 g/dL (31-37) Red Cell Distribution Width 14.2 % (11.5-14.5) Platelet Count 215 x10^3/uL (140-400) Neutrophils (%) (Auto) 40 % (31-73) Lymphocytes (%) (Auto) 51 % (24-48) Monocytes (%) (Auto) 7 % (0-9) Eosinophils (%) (Auto) 2 % (0-3) Basophils (%) (Auto) 1 % (0-3) Neutrophils # (Auto) 3.3 x10^3uL (1.8-7.7) Lymphocytes # (Auto) 4.3 x10^3/uL (1.0-4.8) Monocytes # (Auto) 0.6 x10^3/uL (0.0-1.1) Eosinophils # (Auto) 0.2 x10^3/uL (0.0-0.7) Basophils # (Auto) 0.1 x10^3/uL (0.0-0.2) Prothrombin Time 12.3 SEC (11.7-14.0) Prothromb Time International Ratio 0.9 (0.8-1.1) Sodium Level 142 mmol/L (136-145) Potassium Level 3.6 mmol/L (3.5-5.1) Chloride Level 106 mmol/L (98-107) Carbon Dioxide Level 28 mmol/L (21-32) Anion Gap 8 (6-14) Blood Urea Nitrogen 12 mg/dL (8-26) Creatinine 1.2 mg/dL (0.7-1.3) Estimated GFR (Cockcroft-Gault) 77.9 BUN/Creatinine Ratio 10 (6-20) Glucose Level 113 mg/dL (70-99) Calcium Level 9.1 mg/dL (8.5-10.1) Magnesium Level 2.1 mg/dL (1.8-2.4) Total Bilirubin 0.5 mg/dL (0.2-1.0) Aspartate Amino Transf (AST/SGOT) 16 U/L (15-37) Alanine Aminotransferase (ALT/SGPT) 17 U/L (16-63) Alkaline Phosphatase 96 U/L (46-116) Creatine Kinase 116 U/L (39-308) Creatine Kinase MB (Mass) < 0.5 ng/mL (0.0-3.6) Creatine Kinase MB Relative Index % (0-4) Troponin I Quantitative < 0.017 ng/mL (0.000-0.055) < 0.017 ng/mL (0.000-0.055) < 0.017 ng/mL (0.000-0.055) CS-Hsk-Q-Type Natriuretic Peptide 9 pg/mL (0-124) Total Protein 7.6 g/dL (6.4-8.2) Albumin 3.4 g/dL (3.4-5.0) Albumin/Globulin Ratio 0.8 (1.0-1.7) Triglycerides Level 115 mg/dL (0-150) Cholesterol Level 212 mg/dL (0-200) LDL Cholesterol, Calculated 149 mg/dL (0-100) VLDL Cholesterol, Calculated 23 mg/dL (0-40) Non-HDL Cholesterol Calculated 172 mg/dL (0-129) HDL Cholesterol 40 mg/dL (40-60) Cholesterol/HDL Ratio 5.3 Lipase 266 U/L (73-393) Thyroid Stimulating Hormone (TSH) 1.509 uIU/mL (0.358-3.74) Urine Color Yellow Urine Clarity Clear Urine pH 6.0 Urine Specific [place] >=1.030 Urine Protein Negative mg/dL (NEG-TRACE) Urine Glucose (UA) Negative mg/dL (NEG) Urine Ketones (Stick) Negative mg/dL (NEG) Urine Blood Negative (NEG) Urine Nitrite Negative (NEG) Urine Bilirubin Negative (NEG) Urine Urobilinogen Dipstick 1.0 mg/dL (0.2 mg/dL) Urine Leukocyte Esterase Negative (NEG) Urine RBC 0 /HPF (0-2) Urine WBC Occ /HPF (0-4) Urine Squamous Epithelial Cells Occ /LPF Urine Bacteria 0 /HPF (0-FEW) Urine Mucus Mod /LPF Urine Opiates Screen Pos (NEG) Urine Methadone Screen Neg (NEG) Urine Barbiturates Neg (NEG) Urine Phencyclidine Screen Neg (NEG) Urine Amphetamine/Methamphetamine Neg (NEG) Urine Benzodiazepines Screen Neg (NEG) Urine Cocaine Screen Neg (NEG) Urine Cannabinoids Screen Pos (NEG) Urine Ethyl Alcohol Neg (NEG) Test 11/09/18 00:25 Troponin I Quantitative < 0.017 ng/mL (0.000-0.055) Laboratory Tests Test 11/08/18 12:00 11/08/18 15:00 11/08/18 17:50 11/09/18 00:25 Troponin I Quantitative < 0.017 ng/mL (0.000-0.055) < 0.017 ng/mL (0.000-0.055) < 0.017 ng/mL (0.000-0.055) Urine Color Yellow Urine Clarity Clear Urine pH 6.0 Urine Specific [place] >=1.030 Urine Protein Negative mg/dL (NEG-TRACE) Urine Glucose (UA) Negative mg/dL (NEG) Urine Ketones (Stick) Negative mg/dL (NEG) Urine Blood Negative (NEG) Urine Nitrite Negative (NEG) Urine Bilirubin Negative (NEG) Urine Urobilinogen Dipstick 1.0 mg/dL (0.2 mg/dL) Urine Leukocyte Esterase Negative (NEG) Urine RBC 0 /HPF (0-2) Urine WBC Occ /HPF (0-4) Urine Squamous Epithelial Cells Occ /LPF Urine Bacteria 0 /HPF (0-FEW) Urine Mucus Mod /LPF Urine Opiates Screen Pos (NEG) Urine Methadone Screen Neg (NEG) Urine Barbiturates Neg (NEG) Urine Phencyclidine Screen Neg (NEG) Urine Amphetamine/Methamphetamine Neg (NEG) Urine Benzodiazepines Screen Neg (NEG) Urine Cocaine Screen Neg (NEG) Urine Cannabinoids Screen Pos (NEG) Urine Ethyl Alcohol Neg (NEG) Brief Hospital Course Mr. Prajapati is a 48 old male who presented with sensation of tingling over his left upper extremity and reproducible epigastric pain. Patient was evaluated in the hospital with serial cardiac enzymes which were found to be negative, given the nature of his pain very unlikely to be cardiac in nature. Life threatening conditions were ruled out. Patient was encouraged to continue taking his antihypertensive medications prescribed and I provided extensive counseling regarding the adverse outcomes that he may experience if he continues to have uncontrolled hypertension. He was also advised to continue with Flomax for better micturition. He was seen in consultation by GI as well and recommendations were to continue with PPI and outpatient follow up. He was deemed appropriate for discharge and close follow up with his PCP in the outpatient setting, no acute events reported during his inpatient stay. All concerns addressed to the best of my abilities. PE Lungs with good inspiratory effort clear to auscultations CVS s1s2 RR no murmurs Discharge Information Condition at Discharge: Stable Disposition/Orders: D/C to Home Scheduled Amlodipine Besylate (Amlodipine Besylate) 10 Mg Tablet, 10 MG PO DAILY for hypertension for 30 Days, #30 Prescribed by: HYACINTH RAND MD on 11/09/18 1049 Atorvastatin Calcium (Atorvastatin Calcium) 20 Mg Tablet, 20 MG PO QHS for dyslipidemia for 30 Days, #30 Prescribed by: HYACINTH RAND MD on 11/09/18 1049 Famotidine (Famotidine) 20 Mg Tablet, 20 MG PO BID for 30 Days Prescribed by: CRISSY CARROLL MD on 07/31/16 0927 Opium/Belladonna Alkaloids (Belladonna-Opium 16.2-30 Supp) 1 Each Supp.rect, 1 EACH RC BID for rectal pain for 14 Days, #28 Prescribed by: HYACINHT RAND MD on 11/09/18 1050 Tamsulosin Hcl (Flomax) 0.4 Mg Cap.er.24h, 0.4 MG PO DAILY for BPH for 30 Days, #30 Prescribed by: HYACINTH RAND MD on 11/09/18 1049 Tapentadol Hcl (Nucynta) 75 Mg Tablet, 1 TAB PO BID for Pain, #60 Prescribed by: HYACINTH RAND MD on 11/09/18 1049 [Pantoprazole] 40 MG TABLET.DR, 40 MG PO DAILYAC for GERD for 30 Days, #30 Prescribed by: HYACINTH RAND MD on 11/09/18 1049 HYACINTH RAND MD Nov 09, 2018 10:57
--- NOTE | 2018-11-09 12:45 | PDOC ---
PROGRESS NOTE SUBJECTIVE: ROS: ROS: RESPIRATORY: Shortness of breath denies. Cough denies. UROLOGY: Denies blood in urine. Denies difficulty urinating HPI: No difficulty voiding as long as he is taking Flomax He does have bothersome episodic penile / perineal pain. Problems: Problems Medical Problems: (1) Chest pain Status: Acute (2) HTN (hypertension) Status: Acute OBJECTIVE: Vital Signs: Vital Signs Date Time Temp Pulse Resp B/P (MAP) Pulse Ox O2 Delivery O2 Flow Rate FiO2 11/09/18 10:43 98.3 79 153/91 (111) 99 Room Air 98.3 11/09/18 09:22 85 114/65 11/09/18 07:43 98.1 73 114/65 (81) 99 Room Air 98.1 11/09/18 02:48 98.5 85 18 155/89 (111) 98 Room Air 98.5 11/08/18 22:58 98.7 91 18 166/95 (118) 99 Room Air 98.7 11/08/18 21:43 16 Room Air 11/08/18 20:40 16 Room Air 11/08/18 19:34 Room Air 11/08/18 19:00 98.6 79 18 168/96 (120) 99 Room Air 98.6 11/08/18 18:22 77 147/91 11/08/18 14:50 98.1 77 150/88 (108) 100 Room Air 98.1 I & O Intake and Output 11/09/18 07:01 Output Total 0 ml Balance 0 ml Output Urine Total 0 ml # Voids 3 PHYSICAL EXAM: Physical Exam: General: Pleasant, no acute distress, well groomed Skin: no rashes or skin lesions on visualized skin Psych: normal mood, affect. Alert and oriented x 3. LABS: Laboratory Tests Test 11/08/18 07:40 11/08/18 12:00 11/08/18 15:00 11/08/18 17:50 White Blood Count 8.4 x10^3/uL (4.0-11.0) Red Blood Count 4.85 x10^6/uL (4.30-5.70) Hemoglobin 15.1 g/dL (13.0-17.5) Hematocrit 42.8 % (39.0-53.0) Mean Corpuscular Volume 88 fL (79-100) Mean Corpuscular Hemoglobin 31 pg (25-35) Mean Corpuscular Hemoglobin Concent 35 g/dL (31-37) Red Cell Distribution Width 14.2 % (11.5-14.5) Platelet Count 215 x10^3/uL (140-400) Neutrophils (%) (Auto) 40 % (31-73) Lymphocytes (%) (Auto) 51 % (24-48) Monocytes (%) (Auto) 7 % (0-9) Eosinophils (%) (Auto) 2 % (0-3) Basophils (%) (Auto) 1 % (0-3) Neutrophils # (Auto) 3.3 x10^3uL (1.8-7.7) Lymphocytes # (Auto) 4.3 x10^3/uL (1.0-4.8) Monocytes # (Auto) 0.6 x10^3/uL (0.0-1.1) Eosinophils # (Auto) 0.2 x10^3/uL (0.0-0.7) Basophils # (Auto) 0.1 x10^3/uL (0.0-0.2) Prothrombin Time 12.3 SEC (11.7-14.0) Prothromb Time International Ratio 0.9 (0.8-1.1) Sodium Level 142 mmol/L (136-145) Potassium Level 3.6 mmol/L (3.5-5.1) Chloride Level 106 mmol/L (98-107) Carbon Dioxide Level 28 mmol/L (21-32) Anion Gap 8 (6-14) Blood Urea Nitrogen 12 mg/dL (8-26) Creatinine 1.2 mg/dL (0.7-1.3) Estimated GFR (Cockcroft-Gault) 77.9 BUN/Creatinine Ratio 10 (6-20) Glucose Level 113 mg/dL (70-99) Calcium Level 9.1 mg/dL (8.5-10.1) Magnesium Level 2.1 mg/dL (1.8-2.4) Total Bilirubin 0.5 mg/dL (0.2-1.0) Aspartate Amino Transf (AST/SGOT) 16 U/L (15-37) Alanine Aminotransferase (ALT/SGPT) 17 U/L (16-63) Alkaline Phosphatase 96 U/L (46-116) Creatine Kinase 116 U/L (39-308) Creatine Kinase MB (Mass) < 0.5 ng/mL (0.0-3.6) Creatine Kinase MB Relative Index % (0-4) Troponin I Quantitative < 0.017 ng/mL (0.000-0.055) < 0.017 ng/mL (0.000-0.055) < 0.017 ng/mL (0.000-0.055) FN-Cqj-G-Type Natriuretic Peptide 9 pg/mL (0-124) Total Protein 7.6 g/dL (6.4-8.2) Albumin 3.4 g/dL (3.4-5.0) Albumin/Globulin Ratio 0.8 (1.0-1.7) Triglycerides Level 115 mg/dL (0-150) Cholesterol Level 212 mg/dL (0-200) LDL Cholesterol, Calculated 149 mg/dL (0-100) VLDL Cholesterol, Calculated 23 mg/dL (0-40) Non-HDL Cholesterol Calculated 172 mg/dL (0-129) HDL Cholesterol 40 mg/dL (40-60) Cholesterol/HDL Ratio 5.3 Lipase 266 U/L (73-393) Thyroid Stimulating Hormone (TSH) 1.509 uIU/mL (0.358-3.74) Urine Color Yellow Urine Clarity Clear Urine pH 6.0 Urine Specific [place] >=1.030 Urine Protein Negative mg/dL (NEG-TRACE) Urine Glucose (UA) Negative mg/dL (NEG) Urine Ketones (Stick) Negative mg/dL (NEG) Urine Blood Negative (NEG) Urine Nitrite Negative (NEG) Urine Bilirubin Negative (NEG) Urine Urobilinogen Dipstick 1.0 mg/dL (0.2 mg/dL) Urine Leukocyte Esterase Negative (NEG) Urine RBC 0 /HPF (0-2) Urine WBC Occ /HPF (0-4) Urine Squamous Epithelial Cells Occ /LPF Urine Bacteria 0 /HPF (0-FEW) Urine Mucus Mod /LPF Urine Opiates Screen Pos (NEG) Urine Methadone Screen Neg (NEG) Urine Barbiturates Neg (NEG) Urine Phencyclidine Screen Neg (NEG) Urine Amphetamine/Methamphetamine Neg (NEG) Urine Benzodiazepines Screen Neg (NEG) Urine Cocaine Screen Neg (NEG) Urine Cannabinoids Screen Pos (NEG) Urine Ethyl Alcohol Neg (NEG) Test 11/09/18 00:25 Troponin I Quantitative < 0.017 ng/mL (0.000-0.055) MEDICATIONS: Current Medications Medications (Trade) Dose Ordered Sig/Anitha Start Time Stop Time Status Last Admin Dose Admin Acetaminophen (Tylenol) 1,000 mg 1X ONCE 11/08/18 08:00 11/08/18 08:04 DC 11/08/18 08:14 1,000 MG Acetaminophen/ Codeine Phosphate (Tylenol #3) 1 tab PRN Q4HRS PRN 11/08/18 19:15 11/08/18 20:40 1 TAB Amlodipine Besylate (Norvasc) 10 mg DAILY 11/08/18 18:00 11/09/18 09:22 10 MG Atorvastatin Calcium (Lipitor) 20 mg QHS 11/08/18 21:00 11/08/18 20:39 20 MG Cyclobenzaprine HCl (Flexeril) 10 mg PRN TID PRN 11/08/18 19:15 Famotidine (Pepcid Vial) 20 mg 1X ONCE 11/08/18 08:45 11/08/18 08:46 DC 11/08/18 08:51 20 MG Labetalol HCl (Normodyne Iv Push) 20 mg PRN Q2HR PRN 11/08/18 12:15 Morphine Sulfate (Morphine Sulfate) 4 mg STK-MED ONCE 11/08/18 10:16 11/08/18 10:17 DC Multi-Ingredient Mouthwash/Gargle (Gi Cocktail) 20 ml 1X ONCE 11/08/18 08:45 11/08/18 08:46 DC 11/08/18 08:51 20 ML Nitroglycerin (Nitrostat) 0.4 mg PRN Q5MIN PRN 11/08/18 10:00 11/08/18 10:12 0.4 MG Pantoprazole Sodium (Protonix) 40 mg DAILYAC 11/08/18 16:30 11/09/18 09:11 40 MG Polyethylene Glycol (miraLAX PACKET) 17 gm DAILY 11/08/18 15:00 11/09/18 09:22 17 GM Tamsulosin HCl (Flomax) 0.4 mg DAILY 11/08/18 14:00 11/09/18 09:11 0.4 MG ASSESSMENT & PLAN continue flomax 0.4 mg daily try oxybutinin 5 mg BID for bladder spasms / penile pain. Will sign off. I gave him my card to f/u as outpatient in 2-4 weeks. Problem List: Problems Medical Problems: (1) Chest pain Status: Acute (2) HTN (hypertension) Status: Acute PABLO ALEJANDRE MD Nov 09, 2018 12:45
[2018-11-09] MEDS ORDERED: OXYBUTYNIN CHLORIDE 5 MG TABLET PO SCH (13:30)
== END 2018-11-09 15:30 | disposition home or self-care (01) ==
LOC: ER 07:26 → 2 NORTH 09:48
PROVIDERS: ADMIT Internal Medicine; ATTEND Internal Medicine
DX: R07.89 Other chest pain (principal); I10 Essential (primary) hypertension; E78.5 Hyperlipidemia, unspecified; G45.9 Transient cerebral ischemic attack, unspecified; F41.9 Anxiety disorder, unspecified; G51.0 Bell's palsy; K21.9 Gastro-esophageal reflux disease without esophagitis; N40.1 Benign prostatic hyperplasia with lower urinary tract symptoms; F17.210 Nicotine dependence, cigarettes, uncomplicated; F12.90 Cannabis use, unspecified, uncomplicated; Z86.73 Personal history of transient ischemic attack (TIA), and cerebral infarction without residual deficits
CPT/HCPCS: 36415; 70450; 71045; 80053; 80061; 80307; 81001; 82553; 83690; 83735; 83880; 84443; 84484; 85025; 85610; 93005; 93306; 96374; 96375; 99284; G0378; J2270; J3490; G0379

== ENCOUNTER → 2020-02-18 | Outpatient (CLI) | payer OTHER ==
[~2020-02-18] MED LIST changes: +AMLO10TA8 PO; +ATOR20TA58 PO; +IOHEXOL 300 MG/ML 100ML VIAL. IV ONE; +OPIU1SUP2 RC; +Pantoprazole PO; +TAMS0.4C97 PO; +TAPE75TA3 PO
--- NOTE | 2020-02-18 13:32 | KCIC ---
CT abdomen and pelvis without and with contrast HISTORY: Microscopic hematuria, difficult urinating, left testicular pain. History of rectal surgery. TECHNIQUE: CT imaging of the abdomen and pelvis acquired without contrast and 95 mL Omnipaque 300 intravenous contrast images acquired during the early nephrogram and delayed urogram phase images. 3-D MIP reconstructions of the kidneys, ureters and bladder were obtained. Abdomen findings: Noncontrast imaging demonstrates no urinary calculi. 1 cm left adrenal adenoma precontrast density 2 units. There is a subcentimeter indeterminate right adrenal nodule with a precontrast density of 20 units given its small size of doubtful significance. Along the anterior right kidney there is a exophytic 6 cm fluid density cyst internal density of 12 units, this cyst compresses the right renal pelvis and calyces associated with mild right renal hydronephrosis. There is no enhancing complex cystic or solid mass of the kidneys. There is no urothelial thickening, stricture or filling defect of the renal calyces, pelves or ureters. Extensive aortoiliac calcified plaque with probable high-grade stenotic disease of the common iliac arteries. The gallbladder fundus demonstrates a fixed 3 cm in length focus of stricturing with luminal collapse and wall thickening during all phases of imaging. Liver, pancreas, spleen unremarkable. No obstruction or inflammatory changes in GI tract. Appendix is normal. No abdominal fluid or adenopathy. Lower lumbar disc disease. Lung bases are unremarkable. 1 cm fatty umbilical abdominal wall hernia. Pelvis findings: No bladder calculi. There is incomplete contrast opacification of the nondependent bladder although in light of this there is no bladder mucosal lesion or mass or filling defect evident. Along the floor the bladder at the midline there is a 1 cm mild protuberance, which may be in continuity with the adjacent base the prostate. Rectum and bones are unremarkable. No pelvic fluid or adenopathy. Left sacroiliac joint osteophytes. IMPRESSION: 1. No urinary calculi. 2. 6 cm mildly exophytic right renal cyst which also compresses the right renal pelvis contributing to mild hydronephrosis likely due to a low-grade obstruction. 3. 1 cm shallow protuberance along the midline floor of the bladder. This could be nodular hyperplasia of the base of the prostate protruding into the floor of the bladder. An en plaque urothelial lesion would be a secondary consideration. With a history of microscopic hematuria further assessment with cystoscopy may be a consideration. 4. 3 cm in length fixed narrowing with wall thickening and luminal collapse of the gallbladder fundus of uncertain significance, a focus of persistent muscle spasm is possible, versus focal adenomyomatosis, or neoplasia. This may be further assessed with ultrasound or MR imaging. Exposure: One or more of the following individualized dose reduction techniques were utilized for this examination: 1. Automated exposure control 2. Adjustment of the mA and/or kV according to patient size 3. Use of iterative reconstruction technique Electronically signed by: William Jimenez MD (02/18/2020 1:29 PM) [id number]
== END | disposition home or self-care (01) ==
LOC: KCIC CT 11:16
PROVIDERS: ATTEND Urology
DX: N28.1 Cyst of kidney, acquired (principal); N13.30 Unspecified hydronephrosis; K42.9 Umbilical hernia without obstruction or gangrene; M25.70 Osteophyte, unspecified joint
CPT/HCPCS: 74178; Q9967

== ENCOUNTER → 2020-04-12 | Outpatient (CLI) | payer OTHER ==
[~2020-04-12] MED LIST changes: +IOHEXOL 240 MG/ML 50ML VIAL. PO ONE
--- NOTE | 2020-04-12 09:47 | KCIC ---
Exam: CT abdomen/pelvis with intravenous contrast Indication: Epigastric and left lower quadrant pain for 2 months, renal cyst. Comparison: CT abdomen pelvis 02/18/2020 Technique: Helical CT imaging performed of the abdomen and pelvis after the intravenous administration of 100 mL Isovue-300 intravenous contrast. Sagittal and coronal reformats were obtained. One or more of the following individualized dose reduction techniques were utilized for this examination: 1. Automated exposure control 2. Adjustment of the mA and/or kV according to patient size 3. Use of iterative reconstruction technique. Findings: Lower chest: Lung bases are clear. Heart is normal in size. Liver: The liver is normal in size. No focal liver lesion. Portal, superior mesenteric, and splenic veins are patent. Gallbladder/Biliary Tree: There is unchanged focal narrowing at the gallbladder fundus measuring approximately 3 cm in length with hyperdense material within the area of narrowing. No biliary duct dilatation. Pancreas: Normal. Spleen: Normal. Adrenal Glands: There is a 1 cm left adrenal nodule, likely adenoma. The right adrenal gland is normal. Kidneys/Ureters/Bladder: Kidneys are normal in size and enhance symmetrically. A 6 cm simple right renal cyst is unchanged. Mild right hydronephrosis is unchanged and may be due to compression of the renal pelvis from the large simple cyst. No left hydronephrosis. Ureters are normal. Unchanged nodularity along the base of the bladder, possibly indentation from the prostate gland. Reproductive Organs: Prostate gland is normal. Stomach, small bowel, and colon: Stomach and small bowel are normal. No small bowel obstruction. Appendix is normal. Colon is unremarkable. Vasculature: No aortic aneurysm. There is mild calcified and noncalcified atherosclerosis of the infrarenal abdominal aorta. Severe calcified and noncalcified atherosclerosis of the common iliac artery origins, which appear occluded. There is flow seen within the external iliac arteries, possibly reconstituted from the internal iliac arteries. Lymph Nodes: No lymphadenopathy. Peritoneum and retroperitoneum: No free fluid or free air. Bones: No acute osseous abnormality. Mild degenerative disc disease at L5-S1 and mild degenerative joint disease of sacroiliac joints. Miscellaneous: No abdominal wall or inguinal hernia. Impression: 1. 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 There is reconstitution of flow in the internal and external iliac arteries. Recommend dedicated CT angiogram with lower extremity runoff or conventional angiogram to further evaluate. 2. Unchanged mild right hydronephrosis, possibly secondary to compression of the renal pelvis from 6 cm simple right renal cyst. 3. Unchanged 3 cm segment of narrowing in the gallbladder fundus. There is hyperdense material within the area of narrowing. Cholelithiasis or sludge with adhesions, adenomyomatosis, or neoplasm are possible. Recommend further evaluation with ultrasound or MRI. Electronically signed by: Deana Butt MD (04/12/2020 9:44 AM) [id number]
== END | disposition home or self-care (01) ==
LOC: KCIC CT 09:22
PROVIDERS: ATTEND Internal Medicine
DX: N28.1 Cyst of kidney, acquired (principal); K82.8 Other specified diseases of gallbladder; E27.8 Other specified disorders of adrenal gland; N13.30 Unspecified hydronephrosis; I70.0 Atherosclerosis of aorta
CPT/HCPCS: 74177; Q9966; Q9967